=== PATIENT | male | born 1960 | race Caucasian/White ===

== ENCOUNTER 2023-04-26 16:43 | Emergency (ER) | payer MEDICARE, SELFPAY ==
--- NOTE | ~2023-04-26 | US_ITS ---
EXAMINATION: US venous doppler [facility] DATE: 04/26/2023 18:52 INDICATION: pain/swelling . TECHNIQUE: Grayscale images without and with compression and Doppler images of the left lower extremi ty veins were obtained. COMPARISON: None FINDINGS: Acute thrombosis of the greater and lesser saphenous veins. Incidental note of thrombosed superficial varicosities. The left common femoral vein, profunda (deep) femoral vein, femoral vein, popliteal v ein, peroneal vein, and posterior tibial veins are patent. The gastrocnemius vein was not imaged. IMPRESSION: Acute thrombosis of the left greater saphenous and lesser saphenous veins with additional thrombosed superficial varicosities. . Reviewed, dictated and finalized at location K.
[2023-04-26 17:09] VITALS: BP 127/65; PULSE 95; RESP 16; TEMP 36.4; O2SAT 98
--- NOTE | 2023-04-26 17:54 | ED.LOWEXIN ---
HPI - Extremity Injury (Lower) General Chief Complaint: Extremity Injury, Lower <Ishan Medina MD - Last Filed: 04/29/23 17:35> Stated Complaint: redness and soreness to vein in leg <Ishan Medina MD - Last Filed: 04/29/23 17:35> Time Seen by Provider: 04/26/23 17:28 <Ishan Medina MD - Last Filed: 04/29/23 17:35> History of Present Illness HPI Narrative: Patient is a 63-year-old male who presents ER with left leg pain. It is located over a vein in the medial calf and is moving behind his knee. There is a swollen hard cord. No known trauma. He is unsure if he was bit by a bug. No fevers or chills or sweats. No chest pain or chest pressure. No hemoptysis. He does report he had a mild cough and recently started some doxycycline that was leftover at home. No history of previous DVT. No recent immobility or trauma. <Ishan Medina MD - Last Filed: 04/29/23 17:35> Related Data Allergies/Adverse Reactions: Allergies Allergy/AdvReac Type Severity Reaction Status Date / Time Penicillins Allergy Mild Verified 11/08/18 21:59 <Ishan Medina MD - Last Filed: 04/29/23 17:35> Review of Systems Review of Systems: All systems reviewed & are unremarkable except as noted in HPI and below <Ishan Medina MD - Last Filed: 04/29/23 17:35> Constitutional: Constitutional: Denies chills, Denies fatigue and Denies fever(s) <Ishan Medina MD - Last Filed: 04/29/23 17:35> ENT: Denies nasal congestion and Denies sore throat <Ishan Medina MD - Last Filed: 04/29/23 17:35> Cardiovascular: Cardiovascular: Denies chest pain, Denies rapid heart rate and Denies radiating jaw, neck or arm pain <Ishan Medina MD - Last Filed: 04/29/23 17:35> Respiratory: Respiratory: Reports cough, Denies dyspnea and Denies wheezing <Ishan Medina MD - Last Filed: 04/29/23 17:35> Integumentary/Breasts: Skin/Breast: Denies rash and Denies skin ulcer <Ishan Medina MD - Last Filed: 04/29/23 17:35> Comments: Redness <Ishan Medina MD - Last Filed: 04/29/23 17:35> PMFSH Past Medical History Medical History: Medical History (Updated 04/29/23 @ 17:35 by Ishan Medina MD) Coronary artery disease Hyperlipidemia Hypertension <Ishan Medina MD - Last Filed: 04/29/23 17:35> Surgical History Surgical History: Surgical History (Updated 04/26/23 @ 17:56 by Ishan Medina MD) History of percutaneous coronary intervention <Ishan Medina MD - Last Filed: 04/29/23 17:35> Exam Narrative: GENERAL: Well-appearing, well-nourished, and in no acute distress. HEAD: Normocephalic, atraumatic. ENT: Mucous membranes moist. CHEST: Clear to auscultation. No respiratory distress. HEART: Regular rate and rhythm. Normal peripheral pulses. ABDOMEN: Soft, nontender, nondistended. EXTREMITIES: Normal range of motion. No edema. Tender cord to the left mid calf medially that extends posteriorly to the popliteal fossa. Erythema noted. SKIN: Warm, dry, no rash. NEURO: Alert and oriented x3. PSYCH: Normal mood and affect. <Ishan Medina MD - Last Filed: 04/29/23 17:35> Course Vital Signs Vital signs: Vital Signs Temperature 97.6 F 04/26/23 17:09 Pulse Rate 95 04/26/23 17:09 Respiratory Rate 16 04/26/23 17:09 Blood Pressure 127/65 04/26/23 17:09 Pulse Oximetry 98 04/26/23 17:09 Oxygen Delivery Room Air 04/26/23 17:09 Temperature 97.6 F 04/26/23 17:09 Pulse Rate 77 04/26/23 20:21 Respiratory Rate 18 04/26/23 20:21 Blood Pressure 134/77 04/26/23 20:21 Pulse Oximetry 97 04/26/23 20:21 Oxygen Delivery Room Air 04/26/23 17:09 <Ishan Medina MD - Last Filed: 04/29/23 17:35> Vital Signs Temperature 97.6 F 04/26/23 17:09 Pulse Rate 95 04/26/23 17:09 Respiratory Rate 16 04/26/23 17:09 Blood Pressure 127/65 04/26/23 17:09 Pulse Oximetry 98 04/26/23 17:09 Oxy
[2023-04-26 18:51] VITALS: BP 144/78; PULSE 86; RESP 18; O2SAT 100
[2023-04-26 19:05] LABS: Basophils Percent Auto 0.3 % (0.2-1.2); Eosinophils Absolute Auto 0.2 K/mm3 (0-0.3); Eosinophils Percent Auto 1.8 % (0-4.4); Hemoglobin 15.4 g/dL (14.0-18.0); Immature Granulocyte Absolute 0.04 K/mm3 (0.00-0.031); Immature Granulocyte Percent A 0.4 % (0-0.5); Lymphocytes Absolute Auto 1.69 K/mm3 (0.9-3.2); Lymphocytes Percent Auto 15.6 % (18.3-44.2); Mean Corpuscular HGB Conc 32.8 g/dl (32-36); Mean Corpuscular Hemoglobin 30.8 pg (26-34); Mean Platelet Volume 9.6 fl (7.4-10.4); Monocytes Absolute Auto 0.9 K/mm3 (0.1-0.6); Monocytes Percent Auto 8.5 % (2.6-8.5); Neutrophils Percent Auto 73.4 % (45.5-73.1); Platelet Count Result 302 k/mm3 (150-375); Red Cell Distribution Width 13.9 % (11.5-14.5); White Blood Count 10.8 K/mm3 (4.5-10.0)
[2023-04-26 19:14] LABS: Alanine Aminotransferase 22 U/L (6-50); Albumin Level 4.3 g/dL (3.5-5.1); Alkaline Phosphatase 73 U/L (38-126); Anion Gap 8 mmol/L (8-16); Aspartate Amino Transferase 30 U/L (17-59); Bilirubin,Total 0.4 mg/dL (0.2-1.3); Blood Urea Nitrogen 19 mg/dL (9-20); Calcium 9.3 mg/dL (8.4-10.2); Carbon Dioxide 27 mmol/L (22-30); Chloride 103 mmol/L (98-107); Estimated CRCL calculation 77 ml/min; Estimated Glomerular Filt Rate > 60; Glucose 100 mg/dL (65-110); Potassium 4.5 mmol/L (3.4-5.0); Sodium 138 mmol/L (137-145)
[2023-04-26 19:25] LABS: Partial Thromboplastin Time 25.4 SECONDS (22.3-36.8); Prothrombin Time 13.6 Seconds (11.1-14.7)
[2023-04-26 20:21] VITALS: BP 134/77; PULSE 77; RESP 18; O2SAT 97
[2023-04-26] MEDS: RIVAROXABAN 15 MG TABLET PO (20:22)
== END 2023-04-26 20:31 | disposition home or self-care (01) ==
PROVIDERS: Emergency Medicine; Emergency Provider Emergency Medicine; PCP Nurse Practitioner Family
DX: I82.812 Embolism and thrombosis of superficial veins of left lower extremity (principal); I25.10 Atherosclerotic heart disease of native coronary artery without angina pectoris; E78.5 Hyperlipidemia, unspecified; I10 Essential (primary) hypertension
CPT/HCPCS: 36415; 80053; 85025; 85610; 85730; 93971; 99284; A9270

== ENCOUNTER 2023-05-02 09:48 | Emergency (ER) | payer MEDICARE, SELFPAY ==
[2023-05-02] VITALS (38 sets, daily range): BP systolic 101–127; BP diastolic 66–96; PULSE 103–118; RESP 12–26; TEMP 36.9; O2SAT 94–100
--- NOTE | ~2023-05-02 | CT_ITS ---
EXAMINATION: CT brain wo con DATE: 05/02/2023 12:57 INDICATION: Syncope. TECHNIQUE: Computed tomography (CT) of the head was performed without intravenous contrast. The mA wa s adjusted according to patient size. Iterative reconstruction technique was employed. The dose-lengt h product was 681.00 mGy-cm. COMPARISON: None FINDINGS: There is no intracranial hemorrhage, acute infarction, or abnormal intracranial mass lesion . The ventricles are normal in size. The paranasal sinuses are clear. The mastoid air cells are briana l. The orbits are normal. IMPRESSION: 1. Normal brain. Reviewed, dictated and finalized at location A. IMPRESSION: 1. Normal brain.
--- NOTE | ~2023-05-02 | XR_ITS ---
EXAMINATION: XR chest 2V DATE: 05/02/2023 10:48 INDICATION: Transient alteration of awareness, shortness of breath TECHNIQUE: PA and lateral views of the chest are obtained. COMPARISON: 07/11/2018 FINDINGS: The lungs are free of acute opacities. No pleural effusion or pneumothorax. The cardiomedia stinal silhouette is normal. There is mild thoracic spondylosis. IMPRESSION: 1. No acute cardiopulmonary abnormality. Reviewed, dictated and finalized at location L.
--- NOTE | ~2023-05-02 | CT_ITS ---
EXAMINATION: CTA chest PE protocol DATE: 05/02/2023 12:58 INDICATION: Shortness of breath. TECHNIQUE: Computed tomography angiography (CTA) of the chest was performed with 100 mL Omnipaque-350 intravenous contrast timed to evaluate the pulmonary arteries. Coronal maximum intensity projection 3D-reconstructions were created by the technologist. Automated exposure control and iterative reconst ruction technique were employed. The dose-length product was 1006.32 mGy-cm. COMPARISON: None. FINDINGS: There is mild emphysema. 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 There is a 4.3 x 1.7 cm cavitary mass in right lower lobe. No pleural effusion. There a re extensive acute pulmonary emboli bilaterally involving all lobes. There is a saddle embolus in giuseppe n pulmonary artery. There is right ventricular enlargement, consistent with right heart strain. There is 11 mm nodule in right thyroid lobe, likely not clinically significant. There is mild mediastinal lymphadenopathy. There is mild thoracic spondylosis. IMPRESSION: 1. Extensive acute pulmonary emboli with right heart strain. I called this result to Latoya Bell. 2. 4.3 x 1.7 cm cavitary mass in right lung lower lobe, which may be infection, infarct, or malignanc y. Noncontrast low-dose chest CT is recommended in one month. 3. Mild mediastinal lymphadenopathy, which may be reactive. Reviewed, dictated and finalized at location A. IMPRESSION: 1. Extensive acute pulmonary emboli with right heart strain. I called this resu lt to Latoya Bell. 2. 4.3 x 1.7 cm cavitary mass in right lung lower lobe, which may be infection, infarct, or malignancy. Noncontrast low-dose chest CT is recommended in one mo nth. 3. Mild mediastinal lymphadenopathy, which may be reactive.
--- NOTE | 2023-05-02 10:07 | ECG_ITS ---
Measurements Intervals [place] Rate: 104 P: 60 WI: 163 QRS: 109 QRSD: 89 T: 44 QT: 324 QTc: 428 Interpretive Statements SINUS TACHYCARDIA POOR R WAVE PROGRESSION, ANTERIOR LEADS NONSPECIFIC ST ELEVATION IN ANTEROLATERAL LEADS BASELINE ARTIFACT- I, AVR, AVL BORDERLINE ECG NO PREVIOUS ECG AVAILABLE FOR COMPARISON Electronically Signed On 05-02-2023 10:50:39 CDT by Alex Rosenthal D.O.
[2023-05-02 10:22] LABS: Basophils Percent Auto 0.1 % (0.2-1.2); Eosinophils Percent Auto 0.3 % (0-4.4); Hematocrit 46.5 % (42.0-52.0); Hemoglobin 15.3 g/dL (14.0-18.0); Immature Granulocyte Absolute 0.04 K/mm3 (0.00-0.031); Immature Granulocyte Percent A 0.4 % (0-0.5); Lymphocytes Absolute Auto 0.87 K/mm3 (0.9-3.2); Lymphocytes Percent Auto 9.5 % (18.3-44.2); Mean Corpuscular HGB Conc 32.9 g/dl (32-36); Mean Corpuscular Hemoglobin 30.7 pg (26-34); Mean Corpuscular Volume 93.4 fl (80-100); Mean Platelet Volume 9.8 fl (7.4-10.4); Monocytes Absolute Auto 0.7 K/mm3 (0.1-0.6); Monocytes Percent Auto 7.4 % (2.6-8.5); Neutrophils Absolute Auto 7.5 K/mm3 (1.3-6.7); Neutrophils Percent Auto 82.3 % (45.5-73.1); Platelet Count Result 342 k/mm3 (150-375); Red Blood Count 4.98 M/mm3 (4.6-6.20); Red Cell Distribution Width 13.9 % (11.5-14.5); White Blood Count 9.2 K/mm3 (4.5-10.0)
[2023-05-02 10:32] LABS: Alanine Aminotransferase 40 U/L (6-50); Albumin Level 4.2 g/dL (3.5-5.1); Alkaline Phosphatase 78 U/L (38-126); Anion Gap 9 mmol/L (8-16); Aspartate Amino Transferase 39 U/L (17-59); Bilirubin,Total 0.4 mg/dL (0.2-1.3); Blood Urea Nitrogen 19 mg/dL (9-20); Calcium 8.9 mg/dL (8.4-10.2); Carbon Dioxide 23 mmol/L (22-30); Chloride 102 mmol/L (98-107); Estimated CRCL calculation 100 ml/min; Estimated Glomerular Filt Rate > 60; Glucose 148 mg/dL (65-110); Potassium 4.7 mmol/L (3.4-5.0); Sodium 134 mmol/L (137-145)
[2023-05-02 11:49] LABS: Prothrombin Time 13.4 Seconds (11.1-14.7)
[2023-05-02 12:11] LABS: NT Pro B Type Natriuretic Pept 233 pg/mL (19.9-100); Troponin I 0.721 ng/mL (0.000-0.034)
--- NOTE | 2023-05-02 12:14 | ED.GENADULT ---
HPI - General Adult General Chief complaint: Shortness of Breath/Dyspnea Stated complaint: SOB and syncopal episode Time Seen by Provider: 05/02/23 11:00 History of Present Illness HPI narrative: Enrique Olivera is a 63 y/o male with PMHx of Myocardial infarct with 2 cardiac stents, with a recent diagnosis this past (5 days ago) of a left lower extremity DVT. He was prescribed Xarelto and when he went to pick it up he states the pharmacist said it was not a good idea to take that with his Plavix, so he only took a dose and half a dose on Monday. He states that he started to get a left sided headache with when he took the Xarelto but that went away once he stopped it. He felt his normal self Monday / Monday / Monday. He states that last night around 0 he got up to the bathroom then went to go walk to sit in the recliner to sleep and then woke up on the floor with his glasses on the floor- he feels that he might of passed out? he then got up and went back to bed. When he got up this morning he states that he is having increased SOB, and it is worse on exertion. He reports that he feels like he can breath ok at rest. Related Data Allergies Allergy/AdvReac Type Severity Reaction Status Date / Time Penicillins Allergy Mild Other Verified 05/02/23 09:48 Review of Systems Review of Systems: CONSTITUTIONAL: Denies fever, chills, or sweats. EYES: Denies visual changes, redness, or discharge. ENT: Denies rhinorrhea, congestion, sore throat, or otalgia. CARDIOVASCULAR: Denies chest pain, palpitations, or edema. RESPIRATORY: Denies cough Reports increased Shortness of breath that started today and is worse with exertion GASTROINTESTINAL: Denies abdominal pain, nausea, vomiting, or diarrhea. GENITOURINARY: Denies dysuria or hematuria. SKIN: Denies rash or itching. MUSCULOSKELETAL: Denies back pain, joint pain, or myalgia. NEUROLOGIC: Denies headache, numbness, dizziness, or weakness. PSYCHIATRIC: Denies anxiety or depression. [facility] Past Medical History Medical History Coronary artery disease Hyperlipidemia Hypertension Surgical History Surgical History History of percutaneous coronary intervention Exam Narrative: GENERAL: Well-appearing, well-nourished, and in no acute distress. HEAD: Normocephalic, atraumatic. EYES: PERRLA and EOMI. ENT: Nares clear, no rhinorrhea or epistaxis. Mucous membranes moist. Oropharynx without tonsillar hypertrophy exudate or other lesions. NECK: Supple. No adenopathy or masses. No carotid bruits or JVD CHEST: Clear to auscultation. No respiratory distress. No wheezes rales or rhonchi HEART: Regular rate and rhythm. No murmur heard. Normal peripheral pulses. ABDOMEN: Soft, nontender, nondistended, normal active bowel sounds. EXTREMITIES: Normal range of motion. No edema. SKIN: Warm, dry, no rash. NEURO: No focal deficits. Alert and oriented x3. PSYCH: Normal mood and affect. Course Vital Signs Vital signs: Vital Signs Temperature 36.9 C 05/02/23 09:50 Pulse Rate 108 H 05/02/23 09:50 Respiratory Rate 18 05/02/23 09:50 Blood Pressure 127/70 05/02/23 09:50 Pulse Oximetry 98 05/02/23 09:50 Temperature 36.9 C 05/02/23 09:50 Pulse Rate 111 H 05/02/23 19:25 Respiratory Rate 20 05/02/23 19:25 Blood Pressure 113/71 05/02/23 19:25 Pulse Oximetry 97 05/02/23 19:25 Oxygen Delivery Room Air 05/02/23 10:15 Medical Decision Making [facility] Narrative Medical decision making narrative: On exam pt is calm, in no acute distress He denies chest pain/ abdominal pain/ nausea/vomiting He reports he started to have increased SOB with exertion when he got up today. He states that he believes he must of passed out sometime last night/ early this morning When I discussed wanting to check a head CT pt initially said he did not want any imaging and
[2023-05-02] MEDS: HEPARIN SODIUM 5,000 UNITS/ML VIAL 8000 UNITS IV PUSH (13:43)
[2023-05-02] MEDS: HEPARIN SOD/D5W 100 UNITS/ML 25,000 UNITS/250 ML BAG 15 UNITS IV CONT (13:43)
== END 2023-05-02 19:30 | disposition short-term general hospital (02) ==
PROVIDERS: Preventive Medicine Aerospace Medicine; Emergency Provider Nurse Practitioner Family; PCP Nurse Practitioner Family
DX: I26.02 Saddle embolus of pulmonary artery with acute cor pulmonale (principal); R06.02 Shortness of breath; I25.2 Old myocardial infarction; I10 Essential (primary) hypertension; I25.10 Atherosclerotic heart disease of native coronary artery without angina pectoris; Z79.01 Long term (current) use of anticoagulants
CPT/HCPCS: 36415; 70450; 71046; 71275; 80053; 83880; 84484; 85025; 85610; 93005; 96365; 96366; 99285; J1644; Q9967

== ENCOUNTER 2024-08-19 18:15 | Emergency (ER) | payer MEDICARE, SELFPAY ==
--- NOTE | ~2024-08-19 | CT_ITS ---
EXAMINATION: CT abdomen pelvis wo con DATE: 08/19/2024 22:48 INDICATION: dysuria, urinary retention TECHNIQUE: Computed tomography (CT) of the abdomen and pelvis was performed without intravenous contr ast. Automated exposure control and iterative reconstruction technique were employed. The dose-length product was 1599.15 mGy-cm. COMPARISON: None. FINDINGS: Lower thorax: 19 mm nodular opacities adjacent to a focal region of fibrosis/honeycombing and bronchi ectasis. Scattered calcified granulomas. Coronary artery calcifications. Liver: Enlarged. Diffuse fatty infiltration.. Biliary/Gallbladder: Gallbladder is normal. No bile duct dilation. Pancreas: No mass or duct dilation. Spleen: Normal. Adrenals:No mass. Kidneys: No suspicious mass, obstructing stone, or hydronephrosis. 3 mm right midpole nonobstructing calcification. GI tract: No small or large bowel dilation. Normal appendix. Diverticulosis without diverticulitis. Mesentery/Peritoneum: No ascites, mass, or free air. Retroperitoneum: No mass. Atherosclerotic abdominal aortic and/or arterial calcifications. Pelvis: Distended urinary bladder with mild wall thickening and surrounding stranding. Marked prostat omegaly. Soft Tissues: Soft tissues and body wall unremarkable. Bones: No acute osseous finding. IMPRESSION: Hepatomegaly with steatosis. Distended urinary bladder with evidence of cystitis. Reviewed, dictated and finalized at location K. [employer]
[2024-08-19 19:12] VITALS: BP 132/76; PULSE 114; RESP 14; TEMP 36.6; O2SAT 98
[2024-08-19 20:13] LABS: Add Urine Microscopic? YES; Appearance Urine Cloudy (Clear); Bacteria Urine Rare /hpf; Bilirubin Urine Negative (Negative); Blood Urine Trace (Negative); Color Urine Dark Yellow (Yellow); Glucose Urine UA Negative (Negative); Ketones Urine 1+ mg/dL (Negative); Leukocyte Esterase Ur 3+ LEU/UL (Negative); Nitrate Urine Positive (Negative); Non Pathogenic Casts 0-2; Protein Urine 1+ mg/dL (Negative); RBC Urine 0-2 /hpf (0-2); Specific Grav Ur 1.007 (1.001-1.035); Squamous Epithelial Cell Urine None Seen /hpf (Few); WBC Urine >100 /hpf (0-3)
--- NOTE | 2024-08-19 21:38 | ED_ITS ---
HPI - Male Genitourinary General Chief complaint: Urogenital-Male Stated complaint: urinary retention Time Seen by Provider: 08/19/24 21:31 History of Present Illness HPI Narrative: 64-year-old male with history of hypertension, hyperlipidemia, CAD presents emergency department for dysuria and decreased urine output for 2 days. Patient reports subjective fevers at the onset of symptoms without episodes of emesis. He states he has been urinating more frequently but does not feel like he is emptying his bladder. Reports history of UTIs but has never had a Reaves catheter placed. Denies flank pain or abdominal pain. Denies hematuria. No history of kidney stones. Related Data Allergies Allergy/AdvReac Type Severity Reaction Status Date / Time Penicillins Allergy Mild Other Verified 05/02/23 09:48 Review of Systems 2 Review of Systems: All systems reviewed & are unremarkable except as noted in HPI and below PMFSH Past Medical History Medical History Hyperlipidemia Hypertension Coronary artery disease Surgical History Surgical History History of percutaneous coronary intervention Exam 2 Narrative: GENERAL: Well-appearing, well-nourished, and in no acute distress. HEAD: Normocephalic, atraumatic. EYES: EOMI. ENT: Nares clear, no rhinorrhea or epistaxis. Mucous membranes moist. NECK: Supple. CHEST: Clear to auscultation. No respiratory distress. HEART: Regular rate and rhythm. No murmur heard. Normal peripheral pulses. ABDOMEN: Soft, nontender, nondistended, normal active bowel sounds. No rebound, guarding or rigidity. No CVA tenderness EXTREMITIES: Normal range of motion. No edema. SKIN: Warm, dry, no rash. NEURO: No focal deficits. Alert and oriented x3 Course Vital Signs Vital signs: Vital Signs Temperature 97.9 F 08/19/24 19:12 Pulse Rate 114 H 08/19/24 19:12 Respiratory Rate 14 08/19/24 19:12 Blood Pressure 132/76 08/19/24 19:12 Pulse Oximetry 98 08/19/24 19:12 Oxygen Delivery Room Air 08/19/24 19:12 Temperature 97.9 F 08/19/24 19:12 Pulse Rate 95 08/20/24 00:24 Respiratory Rate 19 08/20/24 00:24 Blood Pressure 133/69 08/20/24 00:24 Pulse Oximetry 100 08/20/24 00:24 Oxygen Delivery Room Air 08/19/24 19:12 MDM - Male Genitourinary MDM Narrative Medical decision making narrative: 64-year-old male presents to the emergency department for dysuria and urinary retention for about 2 days. Triage vitals with tachycardia 114. Patient is afebrile nontoxic appearing. Abdomen is soft and nontender. No CVA tenderness. Urinalysis does reveal infection with greater than 100 wbc's, 3+ leuk esterase nitrate positive. Urine culture is pending. Lab work obtained which reveals a leukocytosis of 15.1. Chemistries shows a stable kidney function with a creatinine of 0.[address] abd/pelvis shows hepatomegaly with steatosis and distended urinary bladder with evidence of cystitis, no ureteral stones. Postvoid bladder scan does show retained urine at 486 cc. Pt updated on workup. He received 1L of fluids and Rocephin with resolution of tachycardia. Remainder of vitals are stable. On re-evaluation patient is well- appearing on exam and would like to go home. Discussed urinary retention is likely source of UTI. Reaves catheter placed in the ED and patient was sent home with leg bag. Will start ciprofloxacin and provide Urology follow-up. Discussed strict ED return precautions. He and his family at bedside are agreeable with the plan verbalized understanding. Discharged in stable condition. Lab Data 08/19/24 21:56 08/19/24 21:56 Labs: Lab Results 08/19/24 08/19/24 08/20/24 Range/Units 20:01 21:56 00:08 WBC 15.1 H (4.5-10.0) K/mm3 RBC 4.48 L (4.6-6.20) M/mm3 Hgb 13.9 L (14.0-18.0) g/dL Hct 42.3 (42.0-52.0) % MCV 94.4 (80-100) fl MCH 31.0 (26-34) pg MCHC 32.9 (32-36) g/dl RDW 14.6 H (11.5-14.5) % Plt Count 260 (150-375) k/mm3 MPV 9.4 (7.4-10.4) fl Immature Gran % (Auto) 0.6 H (0-0.5) % Neut % (Auto) 82.8 H (45.5-73.1) % Lymph % (Auto) 7.3 L (18.3-44.2) % Day % (Auto) 8.7 H (2.6-8.5) % Eos % (Auto) 0.4 (0-4.4) % Baso % (Auto) 0.2 (0.2-1.2) % Lymph # (Auto) 1.11 (0.9-3.2) K/mm3 Day # (Auto) 1.3 H (0.1-0.6) K/mm3 Eos # (Auto) 0.1 (0-0.3) K/mm3 Baso # (Auto) 0.0 (0.0-0.1) K/mm3 Abs Immat Gran (auto) 0.09 H (0.00-0.031) K/mm3 Absolute Neuts (auto) 12.5 H (1.3-6.7) K/mm3 Absolute Nucleated RBC 0.000 (0.0-0.012) K/mm3 Nucleated RBC % 0.0 (0.0-0.2) % Sodium 135 L (137-145) mmol/L Potassium 4.0 (3.4-5.0) mmol/L Chloride 106 (98-107) mmol/L Carbon Dioxide 25 (22-30) mmol/L Anion Gap 4 (4-12) mmol/L BUN 13 D (9-20) mg/dL Creatinine 0.90 (0.7-1.3) mg/dL Estim Creat Clear Calc 100 ml/min Estimated GFR > 60 (59 - ) Glucose 99 (65-110) mg/dL Lactic Acid 1.0 (0.7-2.0) mmol/L Calcium 9.1 (8.4-10.2) mg/dL Urine Color Dark yellow (Yellow) Urine Appearance Cloudy H (Clear) Urine pH 7.0 (5.0-9.0) Ur Specific [place] 1.007 (1.001-1.035) Urine Protein 1+ H (Negative) mg/dL Urine Glucose (UA) Negative (Negative) mg/dL Urine Ketones 1+ H (Negative) mg/dL Ur Blood (Man) Trace (Negative) Urine Nitrate Positive H (Negative) Urine Bilirubin Negative (Negative) Urine Urobilinogen 1.0 (<2.0) mg/dL Leukocyte Esterase Rfl 3+ H (Negative) DEVAN/UL Urine RBC 0-2 (0-2) /hpf Urine WBC >100 H (0-3) /hpf Ur Squamous Epith Cells None seen (Few) /hpf Urine Bacteria Rare /hpf Urine Casts 0-2 Discharge Plan Discharge Clinical Impression: Acute urinary retention Urinary tract infection Qualifiers: Urinary tract infection type: acute cystitis Hematuria presence: without hematuria Qualified Code(s): N30.00 - Acute cystitis without hematuria Patient Disposition: Home, Self-Care Condition: Stable Instructions: Antibiotic Form, Urinary Retention in Men (ED), Urinary Tract Infection in Men (ED) Additional Instructions: You were evaluated in the emergency department for symptoms of urinary tract infection. You were found to have retained urine in her bladder which is likely causing the infection. A Reaves catheter was placed. Please take the antibiotics as directed and follow-up closely with urologist. Return to the emergency department if you develop issues with the Reaves catheter or the catheter is not draining appropriately, you develop abdominal pain, flank pain, fever, vomiting or other concerning symptoms. Patient Language: [place]ian Prescriptions: New ciprofloxacin HCl 500 mg tablet 500 mg PO Q12H Qty: 14 0RF No Action Xarelto DVT-PE Treat 30d Start 15 mg (42)- 20 mg (9) tablets,dose pack See Rx Instructions .ROUTE .COMPLEX Qty: 51 0RF Rx Instructions: take one-15 mg tablet twice daily for 21 days, then one-20 mg tablet once daily; must take with meal/food Follow-up/Referrals: Elidia Bee APRN [Advanced Practice Nurse] - Jan Thomason MD [Physician] -
[2024-08-19 22:03] LABS: Basophils Percent Auto 0.2 % (0.2-1.2); Eosinophils Absolute Auto 0.1 K/mm3 (0-0.3); Eosinophils Percent Auto 0.4 % (0-4.4); Hematocrit 42.3 % (42.0-52.0); Hemoglobin 13.9 g/dL (14.0-18.0); Immature Granulocyte Absolute 0.09 K/mm3 (0.00-0.031); Immature Granulocyte Percent A 0.6 % (0-0.5); Lymphocytes Absolute Auto 1.11 K/mm3 (0.9-3.2); Lymphocytes Percent Auto 7.3 % (18.3-44.2); Mean Corpuscular HGB Conc 32.9 g/dl (32-36); Mean Corpuscular Volume 94.4 fl (80-100); Mean Platelet Volume 9.4 fl (7.4-10.4); Monocytes Absolute Auto 1.3 K/mm3 (0.1-0.6); Monocytes Percent Auto 8.7 % (2.6-8.5); Neutrophils Absolute Auto 12.5 K/mm3 (1.3-6.7); Neutrophils Percent Auto 82.8 % (45.5-73.1); Platelet Count Result 260 k/mm3 (150-375); Red Blood Count 4.48 M/mm3 (4.6-6.20); Red Cell Distribution Width 14.6 % (11.5-14.5); White Blood Count 15.1 K/mm3 (4.5-10.0)
[2024-08-19 22:13] LABS: Anion Gap 4 mmol/L (4-12); Blood Urea Nitrogen 13 mg/dL (9-20); Calcium 9.1 mg/dL (8.4-10.2); Carbon Dioxide 25 mmol/L (22-30); Chloride 106 mmol/L (98-107); Estimated CRCL calculation 100 ml/min; Estimated Glomerular Filt Rate > 60; Glucose 99 mg/dL (65-110); Sodium 135 mmol/L (137-145)
[2024-08-19 22:29] VITALS: BP 156/86; PULSE 119; RESP 16; O2SAT 98
[2024-08-19] MEDS: SODIUM CHLORIDE 0.9% IV 1,000 ML 999 ML IV CONT (23:27)
[2024-08-20 00:24] VITALS: BP 133/69; PULSE 95; RESP 19; O2SAT 100
== END 2024-08-20 01:41 | disposition home or self-care (01) ==
PROVIDERS: Emergency Medicine; Emergency Provider Physician Assistant; PCP Family Medicine
DX: R33.9 Retention of urine, unspecified (principal); N30.00 Acute cystitis without hematuria; I10 Essential (primary) hypertension; I25.10 Atherosclerotic heart disease of native coronary artery without angina pectoris; E78.5 Hyperlipidemia, unspecified; Z79.01 Long term (current) use of anticoagulants
CPT/HCPCS: 36415; 51702; 74176; 80048; 81001; 83605; 85025; 87040; 87077; 87086; 87186; 96365; 99284; J0696; J7030